=== PATIENT | male | born 1945 | race Caucasian/White ===

== ENCOUNTER 2016-06-26 07:54 | Day surgery (SDC) | payer MEDICARE, OTHER ==
[~2016-06-26] VITALS: Ht 177.8 cm; Wt 91.8 kg
[~2016-06-26 07:54] MED LIST: ACETAMINOPHEN 500 MG TAB (TYLENOL) PO PRN; ASPI-586 PO; ATOR80TA PO; CHONDROITIN/HYALURONATE (DISCOVISC) 1 ML SYR IO ONE; INSU100I14 SQ; INSU100V32 SC; LOSA25TA2 PO; METF500T4 PO; MULT-954 PO; PHENYLEPHRINE/KETOROLAC 4 ML VIAL IO ONE; SODIUM CHLORIDE FLUSH 3 ML SYR IV PRN; TETRACAINE 0.5% OPHTHALMIC SOLUTION 4 ML BTL ONE; diphenhydrAMINE 50 MG/ML INJ (BENADRYL) IV PRN
--- OUTSIDE RECORDS SUMMARY | 2016-06-26 08:02 | XMS REPORT | Continuity of Care Document ---
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 Visit Date/Time Discharge Status Pt. Type Provider Facility Loc./Unit Complaint [id number] 04/20/2015 10:40:00 04/20/2015 23: 59:00 DIS Outpatient Ra Maldonado [facility] OUTPT Right Ureteroscopy
[2016-06-26 08:04] VITALS: BP 153/86
[2016-06-26] MEDS: LIDOCAINE 3.5% OPHTH GEL (AKTEN) 1 ML BTL OD SCH ×4 (08:24→08:57)
[2016-06-26] MEDS: CATARACT PRE-OP EYE DROPS 0.5ML SYRINGE OD SCH ×3 (08:35→08:57)
[2016-06-26] MEDS: HOME MEDICATION OD SCH ×3 (08:35→08:57)
[2016-06-26] MEDS ORDERED: MIDAZOLAM 2 MG/2 ML (VERSED) VIAL ONE (09:31)
[2016-06-26 10:12] VITALS: BP 144/75
== END 2016-06-26 10:32 | disposition home or self-care (01) ==
LOC: ASC 07:54
PROVIDERS: ATTEND Ophthalmology
DX: H25.11 Age-related nuclear cataract, right eye (principal); I10 Essential (primary) hypertension; I25.10 Atherosclerotic heart disease of native coronary artery without angina pectoris; E11.9 Type 2 diabetes mellitus without complications; Z79.4 Long term (current) use of insulin; Z79.82 Long term (current) use of aspirin; Z95.1 Presence of aortocoronary bypass graft
CPT/HCPCS: 66982; 93005; A9270; C9447; J2250; V2632

== ENCOUNTER 2016-07-10 08:10 | Day surgery (SDC) | payer MEDICARE, OTHER ==
[~2016-07-10] VITALS: Ht 177.8 cm; Wt 92.0 kg
--- OUTSIDE RECORDS SUMMARY | 2016-07-10 08:13 | XMS REPORT | Continuity of Care Document ---
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 Visit Date/Time Discharge Status Pt. Type Provider Facility Loc./Unit Complaint [id number] 04/20/2015 10:40:00 04/20/2015 23: 59:00 DIS Outpatient Ra Maldonado [facility] OUTPT Right Ureteroscopy
[2016-07-10 08:26] VITALS: BP 129/78
[2016-07-10] MEDS: LIDOCAINE 3.5% OPHTH GEL (AKTEN) 1 ML BTL OS SCH ×4 (08:59→09:34)
[2016-07-10] MEDS: CATARACT PRE-OP EYE DROPS 0.5ML SYRINGE OS SCH ×4 (09:09→10:04)
[2016-07-10] MEDS: HOME MEDICATION OS SCH ×3 (09:10→09:36)
[2016-07-10] MEDS ORDERED: MIDAZOLAM 2 MG/2 ML (VERSED) VIAL ONE (10:34)
[2016-07-10 11:10] VITALS: BP 144/83
== END 2016-07-10 11:30 | disposition home or self-care (01) ==
LOC: ASC 08:10
PROVIDERS: ATTEND Ophthalmology
DX: H25.12 Age-related nuclear cataract, left eye (principal); I10 Essential (primary) hypertension; E11.9 Type 2 diabetes mellitus without complications; I25.10 Atherosclerotic heart disease of native coronary artery without angina pectoris; Z95.1 Presence of aortocoronary bypass graft; Z79.82 Long term (current) use of aspirin; Z79.4 Long term (current) use of insulin
CPT/HCPCS: 66982; A9270; C9447; J2250; V2632